=== PATIENT | male | born 1985 | race Caucasian/White ===

== ENCOUNTER 2019-12-04 14:57 | Emergency (ER) | payer BC, OTHER ==
--- NOTE | 2019-12-04 15:48 | ED ---
Fall HPI - General Chief Complaint: Fall Stated Complaint: Fall head injury Time Seen by Provider: 12/04/19 15:21 Source: patient Mode of arrival: wheelchair - History of Present Illness Initial Comments: 34-year-old male presenting today for chief complaint of fall at 2:30 AM this morning. Patient states that he was walking up steps he states is going up 2 steps that time he lost his balance falling backwards striking the occipital region of his head. Patient states he does believe he lost consciousness. He is unsure for how long. Patient states he was a backup to bed and fell asleep. He states he does not believe he passed out. Patient is unsure however patient denies any vomiting nausea headaches. Patient admits to pain to palpation in the region of the scalp where he struck his head. Patient admits to neck tenderness and some upper back tenderness. Patient states he has some tenderness over the right anterior chest. Patient doesn't appear deep inspiration or shortness of breath patient denies any chest pressure that is full range of motion of the right shoulder and denies pain in range of motion of the right shoulder. Patient denies any abdominal pain flank or low back pain. Patient denies hematuria. Patient remaining ROS (-). Upon arrival patient appears well there is no signs of acute distress. - Related Data Allergies Allergy/AdvReac Type Severity Reaction Status Date / Time No Known Allergies Allergy Verified 12/04/19 15:05 Review of Systems ROS Statement: Those systems with pertinent positive or pertinent negative responses have been documented in the HPI. ROS Other: All systems not noted in ROS Statement are negative. Past Medical History Past Medical History: No Reported History History of Any Multi-Drug Resistant Organisms: None Reported Past Surgical History: No Surgical Hx Reported Past Psychological History: Anxiety, Panic Disorder Smoking Status: Current every day smoker Past Alcohol Use History: Occasional Past Drug Use History: None Reported General Exam - General Exam Comments Initial Comments: General: The patient is awake and alert, in no distress Eye: +3 mm pupils are equal, round and reactive to light, extra-ocular movements are intact. No nystagmus. There is normal conjunctiva bilaterally. No signs of icterus. Ears, nose, mouth and throat: There are moist mucous membranes and no oral lesions. Nor raccoon or harrell sign. Neck: The neck is supple, there is no tenderness or JVD. There is some cervical motion C6//7 tenderness midline with tenderness of the upper thoracic region midline. No bruising noted. Cardiovascular: There is a regular rate and rhythm. No murmur, rub or gallop is appreciated. Respiratory: Lungs are clear to auscultation, respirations are non-labored, breath sounds are equal. No wheezes, stridor, rales, or rhonchi. Gastrointestinal: Soft, non-distended, non-tender abdomen without masses or organomegaly noted. There is no rebound or guarding present. Musculoskeletal: Normal ROM, no tenderness. Strength 5/5. Sensation intact. Radial pulses equal bilaterally 2+. Neurological: A&O x 3. CN II-XII intact grossly, There are no obvious motor or sensory deficits. Coordination appears grossly intact. Speech is normal. Skin: Skin is warm and dry and no rashes. Some abrasion over the right side of the thorax, some abrasion over the occiptal and right parietal region of scalp. No open laceration. Psychiatric: Cooperative, appropriate mood & affect, normal judgment. Limitations: no limitations Course Vital Signs 12/04/19 12/04/19 15:01 17:26 Temperature 98.2 F 98.6 F Pulse Rate 114 H 99 Respiratory 20 18 Rate Blood Pressure 168/82 124/98 O2 Sat by Pulse 97 99 Oximetry Medical Decision Making - Medical Decision Making Imaging studies negative for acute process. Patient has no focal neurological deficits he appears. Complains of neck pain. Cervical collar was cleared after imaging states revealed no acute fracture and I palpated patient's spine midline which had mild tenderness. Patient is able to fully range the cervical spine without difficulty or severe pain. No hematuria no abdominal flank pain. Patient is no shortness of breath chest x-ray and thoracic x-rays are WNL. After discussing imaging studies the patient he is agreeable to discharge at this time with primary care follow-up and return pressure discussed and patient was discharged appearing well - Lab Data Lab Results 12/04/19 Range/Units 16:33 Urine Color Yellow Urine Appearance Clear (Clear) Urine pH 6.5 (5.0-8.0) Ur Specific [place] 1.027 (1.001-1.035) Urine Protein Trace H (Negative) Urine Glucose (UA) Negative (Negative) Urine Ketones Negative (Negative) Urine Blood Negative (Negative) Urine Nitrite Negative (Negative) Urine Bilirubin Negative (Negative) Urine Urobilinogen 8.0 (<2.0) mg/dL Ur Leukocyte Esterase Negative (Negative) Disposition Clinical Impression: Fall, Scalp abrasion, Neck strain, LOC (loss of consciousness) Disposition: HOME SELF-CARE Condition: Good Instructions (If sedation given, give patient instructions): Cervical Strain (ED) Additional Instructions: Please use medication as discussed. Please follow-up with family doctor in the next 2 days. Please return to emergency room if the symptoms increase or worsen or for any other concerns. Is patient prescribed a controlled substance at d/c from ED?: No Referrals: None,Stated [REFERRING] - 1-2 days [facility] [NON-STAFF] - 1-2 days Time of Disposition: 17:21
--- NOTE | 2019-12-04 16:24 | CT ---
EXAMINATION TYPE: CT brain samara doyle con DATE OF EXAM: 12/04/2019 COMPARISON: NONE HISTORY: Fall with head injury and neck pain. CT DLP: 1768.8 mGycm. Automated Exposure Control for Dose Reduction was Utilized. TECHNIQUE: CT scan of the head and cervical spine are performed without contrast. FINDINGS: There is no acute intracranial hemorrhage, mass effect, or midline shift identified. The ventricles and sulci are within normal limits in size. Quezada-white matter differentiation is maintai lashell. Mild mucosal thickening right maxillary sinus. [id number] mucosal thickening bilateral eth moid sinuses. Near complete opacification left maxillary sinus. The calvarium is intact. Cervical spine is visualized in its entirety from C1 through upper thoracic levels and demonstrates reversal of normal cervical curvature center C4-C5 level without evidence of acute fracture or disloc ation. Prevertebral soft tissue appears within normal limits. The C1-C2 articulation is within norm al limits on the coronal images. Vertebral body heights are maintained. Mild disc space narrowing C4 -C5 level most prominent anteriorly. Posterior spur disc complex effaces the anterior thecal sac at C 4-C5 level. Axial image confirms left-sided paracentral spurring contributing to moderate left-sided neural foraminal narrowing lung apices are clear. IMPRESSION: 1. There is no acute fracture or dislocation evident in the cervical spine. 2. No acute intracranial hemorrhage or midline shift is seen. Incidental acute on chronic paranasal s inus disease.
[2019-12-04 16:45] LABS: Appearance,Urine Clear (Clear); Bilirubin,Urine Negative (Negative); Blood,Urine Negative (Negative); Color,Urine Yellow; Glucose,Urine (UA) Negative (Negative); Ketones,Urine Negative (Negative); Leukocyte Esterase,Urine Negative (Negative); Nitrite,Urine Negative (Negative); PH, Urine 6.5 (5.0-8.0); Protein,Urine Trace (Negative); Specific Gravity,Urine 1.027 (1.001-1.035)
--- NOTE | 2019-12-04 17:12 | XR ---
EXAMINATION TYPE: XR chest 2V DATE OF EXAM: 12/04/2019 COMPARISON: NONE HISTORY: Chest pain after football injury. TECHNIQUE: Frontal and lateral views of the chest are obtained. FINDINGS: There is no focal air space opacity, pleural effusion, or pneumothorax seen. The cardiac silhouette size is within normal limits. The osseous structures are intact. IMPRESSION: No acute process.
--- NOTE | 2019-12-04 17:13 | XR ---
EXAMINATION TYPE: XR thoracic spine complete DATE OF EXAM: 12/04/2019 CLINICAL HISTORY: Fall injury with mid back pain. TECHNIQUE: Frontal, lateral, and swimmer's view of thoracic spine are obtained. COMPARISON: None. FINDINGS: Thoracic spine show satisfactory alignment without evidence of acute fracture or dislocatio n. Vertebral body heights and disc space heights are preserved. Visualized ribs are unremarkable. IMPRESSION: No acute fracture or dislocation is seen in the thoracic spine.
[2019-12-04 17:27] VITALS: BP 124/98; PULSE 99; RESP 18; TEMP 98.6
== END 2019-12-04 17:27 | disposition home or self-care (01) ==
LOC: EC 14:57 → SUPCPDRO 14:57 → EC 17:27
DX: S06.9X9A Unspecified intracranial injury with loss of consciousness of unspecified duration, initial encounter (principal); S00.01XA Abrasion of scalp, initial encounter; S16.1XXA Strain of muscle, fascia and tendon at neck level, initial encounter; F17.200 Nicotine dependence, unspecified, uncomplicated; W18.09XA Striking against other object with subsequent fall, initial encounter; Y93.01 Activity, walking, marching and hiking
CPT/HCPCS: 70450; 71046; 72072; 72125; 81003; 99284

== ENCOUNTER 2023-07-11 16:29 | Emergency (ER) | payer OTHER ==
--- NOTE | 2023-07-11 16:46 | ED ---
General Adult HPI - General Source: patient, RN notes reviewed Mode of arrival: ambulatory Limitations: no limitations <Lashaun Garvey - Last Filed: 07/11/23 16:54> <Liz Reed - Last Filed: 07/11/23 22:33> - General Chief complaint: Arrhythmia/Palpitations Stated complaint: numbness on left side racing heart beat Time Seen by Provider: 07/11/23 16:45 - History of Present Illness Initial comments: 38-year-old male presents to the emergency department chief complaint of left arm pain with radiation to the chest 1.5 days. He states that he has associated palpitations and shortness of breath with this. He reports shortness of breath is worse with exertion. (Lashaun Garvey) Patient reported multiple day of pain in the left shoulder radiating up the neck and down the arm. Patient reports he has a long history of shoulder pain resulting from an injury when he was a teenager. Patient reports the pain is been bothering him for a few days he's been unable to sleep. Pain does seem to radiate down into his chest but he does not have any pain begins in his chest, pain is not associated with diaphoresis or lightheadedness. Patient does report some exertional dyspnea which is somewhat chronic but seems to be worsening. Patient does have a history of hypertension he is on lisinopril he's been compliant with this medication. Patient has no personal cardiac history. (Liz Reed) - Related Data Allergies Allergy/AdvReac Type Severity Reaction Status Date / Time No Known Allergies Allergy Verified 12/04/19 15:05 Review of Systems ROS Other: All systems not noted in ROS Statement are negative. <Lashaun Garvey - Last Filed: 07/11/23 16:54> ROS Other: All systems not noted in ROS Statement are negative. <Liz Reed - Last Filed: 07/11/23 22:33> ROS Statement: Those systems with pertinent positive or pertinent negative responses have been documented in the HPI. Past Medical History Past Medical History: Diabetes Mellitus, Hypertension History of Any Multi-Drug Resistant Organisms: None Reported Past Surgical History: No Surgical Hx Reported Past Psychological History: Anxiety, Panic Disorder Smoking Status: Vaper Past Alcohol Use History: Occasional Past Drug Use History: None Reported <Lashaun Garvey - Last Filed: 07/11/23 16:54> General Exam Limitations: no limitations <Lashaun Garvey - Last Filed: 07/11/23 16:54> General appearance: alert, in no apparent distress, obese (BMI 48) Head exam: Present: atraumatic, normocephalic Eye exam: Present: normal appearance Neck exam: Present: normal inspection. Absent: tenderness Respiratory exam: Present: normal lung sounds bilaterally. Absent: respiratory distress Cardiovascular Exam: Present: regular rate, normal rhythm GI/Abdominal exam: Absent: distended Extremities exam: Present: tenderness, normal capillary refill, other (Pain with range of motion of left shoulder, hypertonicity noted in the trapezius and levator scapula muscles) Back exam: Present: full ROM, tenderness, paraspinal tenderness Neurological exam: Present: alert, oriented X3 Psychiatric exam: Present: normal affect, normal mood Skin exam: Present: warm, dry, intact <Liz Reed P - Last Filed: 07/11/23 22:33> - General Exam Comments Initial Comments: Visual Physical Exam Vital signs reviewed General: Well-appearing, nontoxic, no acute distress. Head: Normocephalic, atraumatic Eyes: PERRLA, EOMI ENT: Airway patent Chest: Nonlabored breathing Skin: No visual rash, normal skin tone Neuro: Alert and oriented 3 Musculoskeletal: No gross abnormalities (Lashaun Garvey) Course Vital Signs 07/11/23 16:41 Temperature 99.2 F Pulse Rate 89 Respiratory 18 Rate Blood Pressure 185/109 O2 Sat by Pulse 95 Oximetry EKG Findings - EKG Comments: EKG Findings:: EKG is interpreted by me, initial EKG obtained at 1659, rate is 95 rhythm is sinus, there is significant artifact noted no obvious ST elevations or depressions no evidence of acute ischemia or infarction. Due to poor quality of first EKG repeat EKG was obtained at 2159, rate is 85 rhythm is sinus is no significant ST elevations or depressions no evidence of acute ischemia or infarction <Liz Reed P - Last Filed: 07/11/23 22:33> Medical Decision Making <Lashaun Garvey - Last Filed: 07/11/23 16:54> - Lab Data Result diagrams: 07/11/23 17:10 07/11/23 17:10 <Liz Reed P - Last Filed: 07/11/23 22:33> - Medical Decision Making I preformed the quick note portion of this chart. Electronically signed by Lashaun Garvey PA-C (Lashaun Garvey) - Lab Data Lab Results 07/11/23 07/11/23 07/11/23 Range/Units 17:10 17:10 17:10 WBC 9.6 (3.8-10.6) k/uL RBC 4.82 (4.30-5.90) m/uL Hgb 14.7 (13.0-17.5) gm/dL Hct 42.4 (39.0-53.0) % MCV 88.0 (80.0-100.0) fL MCH 30.6 (25.0-35.0) pg MCHC 34.8 (31.0-37.0) g/dL RDW 13.0 (11.5-15.5) % Plt Count 242 (150-450) k/uL MPV 8.3 Neutrophils % 52 % Lymphocytes % 34 % Monocytes % 6 % Eosinophils % 6 % Basophils % 1 % Neutrophils # 5.0 (1.3-7.7) k/uL Lymphocytes # 3.2 (1.0-4.8) k/uL Monocytes # 0.6 (0-1.0) k/uL Eosinophils # 0.5 (0-0.7) k/uL Basophils # 0.1 (0-0.2) k/uL PT 10.2 (10.0-12.5) sec INR 0.9 (<1.2) APTT 24.6 (22.0-30.0) sec Sodium 139 (137-145) mmol/L Potassium 4.1 (3.5-5.1) mmol/L Chloride 105 (98-107) mmol/L Carbon Dioxide 22 (22-30) mmol/L Anion Gap 12 mmol/L BUN 14 (9-20) mg/dL Creatinine 0.68 (0.66-1.25) mg/dL Est GFR (CKD-EPI)AfAm >90 (>60 ml/min/1.73 sqM) Est GFR (CKD-EPI)NonAf >90 (>60 ml/min/1.73 sqM) Glucose 141 H (74-99) mg/dL Calcium 9.9 (8.4-10.2) mg/dL Magnesium 1.7 (1.6-2.3) mg/dL Total Bilirubin 0.7 (0.2-1.3) mg/dL AST 35 (17-59) U/L ALT 53 H (4-49) U/L Alkaline Phosphatase 50 (38-126) U/L Troponin I (0.000-0.034) ng/mL Total Protein 7.3 (6.3-8.2) g/dL Albumin 4.6 (3.5-5.0) g/dL 07/11/23 Range/Units 17:10 WBC (3.8-10.6) k/uL RBC (4.30-5.90) m/uL Hgb (13.0-17.5) gm/dL Hct (39.0-53.0) % MCV (80.0-100.0) fL MCH (25.0-35.0) pg MCHC (31.0-37.0) g/dL RDW (11.5-15.5) % Plt Count (150-450) k/uL MPV Neutrophils % % Lymphocytes % % Monocytes % % Eosinophils % % Basophils % % Neutrophils # (1.3-7.7) k/uL Lymphocytes # (1.0-4.8) k/uL Monocytes # (0-1.0) k/uL Eosinophils # (0-0.7) k/uL Basophils # (0-0.2) k/uL PT (10.0-12.5) sec INR (<1.2) APTT (22.0-30.0) sec Sodium (137-145) mmol/L Potassium (3.5-5.1) mmol/L Chloride (98-107) mmol/L Carbon Dioxide (22-30) mmol/L Anion Gap mmol/L BUN (9-20) mg/dL Creatinine (0.66-1.25) mg/dL Est GFR (CKD-EPI)AfAm (>60 ml/min/1.73 sqM) Est GFR (CKD-EPI)NonAf (>60 ml/min/1.73 sqM) Glucose (74-99) mg/dL Calcium (8.4-10.2) mg/dL Magnesium (1.6-2.3) mg/dL Total Bilirubin (0.2-1.3) mg/dL AST (17-59) U/L ALT (4-49) U/L Alkaline Phosphatase (38-126) U/L Troponin I 0.020 (0.000-0.034) ng/mL Total Protein (6.3-8.2) g/dL Albumin (3.5-5.0) g/dL Disposition <Lashaun Garvey - Last Filed: 07/11/23 16:54> Is patient prescribed a controlled substance at d/c from ED?: No <Liz Reed - Last Filed: 07/11/23 22:33> Clinical Impression: Left shoulder pain, Hypertension, Exertional dyspnea, Morbid obesity Disposition: HOME SELF-CARE Condition: Stable Additional Instructions: Follow up with her primary care provider Dr. Barnard to discuss management of hypertension Follow up with orthopedic surgeon for reevaluation of your shoulder pain Prescriptions: Lidocaine 5% Patch [Lidoderm] 1 patch TOPICAL DAILY 30 Days #30 patch methocarbamoL [Robaxin-750] 750 mg PO TID #60 tab Referrals: None,Stated [Primary Care Provider] - 1-2 days
--- NOTE | 2023-07-11 17:27 | XR ---
EXAMINATION TYPE: XR chest 2V DATE OF EXAM: 07/11/2023 5:19 PM CLINICAL INDICATION:Male, 38 years old with history of pain; H COMPARISON: Chest radiographs from 12/04/2019 TECHNIQUE: XR chest 2V Frontal and lateral views of the chest. FINDINGS: Lungs/Pleura: There is no evidence of pleural effusion, focal consolidation, or pneumothorax. Pulmonary vascularity: Unremarkable. Heart/mediastinum: Cardiomediastinal silhouette is unremarkable. Musculoskeletal: No acute osseous pathology. Other findings: None IMPRESSION: No acute cardiopulmonary disease/process.
[2023-07-11 17:44] LABS: Basophils # (A) 0.1 k/uL (0-0.2); Basophils % (A) 1 %; Eosinophils # (A) 0.5 k/uL (0-0.7); Eosinophils % (A) 6 %; HCT 42.4 % (39.0-53.0); HGB 14.7 gm/dL (13.0-17.5); Lymphocytes # (A) 3.2 k/uL (1.0-4.8); Lymphocytes % (A) 34 %; MCH 30.6 pg (25.0-35.0); MCHC 34.8 g/dL (31.0-37.0); Mean Platelet Volume 8.3; Monocytes # (A) 0.6 k/uL (0-1.0); Monocytes % (A) 6 %; Neutrophils % (A) 52 %; Platelet Count 242 k/uL (150-450); RBC 4.82 m/uL (4.30-5.90); WBC 9.6 k/uL (3.8-10.6)
[2023-07-11 18:00] LABS: ALT 53 U/L (4-49); AST 35 U/L (17-59); African American GFR (CKD) >90 (>60 ml/min/1.73 sqM); Albumin 4.6 g/dL (3.5-5.0); Alkaline Phosphatase 50 U/L (38-126); Anion Gap 12 mmol/L; Blood Urea Nitrogen 14 mg/dL (9-20); Calcium 9.9 mg/dL (8.4-10.2); Carbon Dioxide 22 mmol/L (22-30); Chloride 105 mmol/L (98-107); Glucose 141 mg/dL (74-99); Magnesium 1.7 mg/dL (1.6-2.3); Non-African American GFR(CKD) >90 (>60 ml/min/1.73 sqM); Potassium 4.1 mmol/L (3.5-5.1); Sodium 139 mmol/L (137-145); Total Bilirubin 0.7 mg/dL (0.2-1.3); Total Protein 7.3 g/dL (6.3-8.2)
[2023-07-11 18:03] LABS: INR 0.9 (<1.2); Partial Thromboplastin Time 24.6 sec (22.0-30.0); Prothrombin Time 10.2 sec (10.0-12.5)
[2023-07-11] MEDS ORDERED: LIDOCAINE 5% PATCH TOPICAL STA (22:19)
[2023-07-11] MEDS ORDERED: diazePAM 2 MG TAB PO STA (22:19)
[2023-07-11 23:21] VITALS: PULSE 87
[2023-07-11 23:22] VITALS: BP 180/100; RESP 17; TEMP 98.9
== END 2023-07-11 22:50 | disposition home or self-care (01) ==
LOC: EC 16:29
DX: M25.512 Pain in left shoulder (principal); E66.01 Morbid (severe) obesity due to excess calories; I10 Essential (primary) hypertension; R06.00 Dyspnea, unspecified; E11.9 Type 2 diabetes mellitus without complications; Z68.42 Body mass index [BMI] 45.0-49.9, adult; F17.290 Nicotine dependence, other tobacco product, uncomplicated; Z86.59 Personal history of other mental and behavioral disorders
CPT/HCPCS: 36415; 71046; 80053; 83735; 84484; 85025; 85610; 85730; 93005; 99285

== ENCOUNTER → 2023-08-04 | Outpatient (CLI) | payer OTHER ==
--- NOTE | 2023-08-04 14:19 | MR ---
EXAMINATION TYPE: MR cervical spine wo con DATE OF EXAM: 08/04/2023 8:09 AM CLINICAL INDICATION:Male, 38 years old with history of M54.2 cervicalgia; PHH, Neck pain, radiates in to left shoulder/arm. COMPARISON: 12/04/2019.. TECHNIQUE: Multi planar, multi sequence imaging was performed utilizing: T1-weighted, T2-weighted, an d turbo inversion recovery imaging of the cervical spine. IV Contrast: (none if empty) FINDINGS: Alignment: The cervical vertebral bodies have preserved heights. Alignment is within normal limits gi galina patient positioning. Bones: Bone signal is within normal limits. No abnormal bone marrow edema on inversion recovery seque nces. Cord: The spinal cord is unremarkable with regards to their signal intensity and morphology. Discs: Multilevel disc desiccation is present. C2-C3: No significant disc pathology. The spinal canal is patent. Bilateral facet and uncovertebral joint arthropathy are present with mild right neural foraminal stenosis. The left neural foramen is p atent. C3-C4: No significant disc pathology. The spinal canal is patent. Bilateral facet and uncovertebral joint arthropathy are present with mild to moderate right neural foraminal stenosis. The left neural foramen is patent. C4-C5: Foraminal disc osteophyte formation with severe left neural foraminal stenosis and moderate to severe spinal canal narrowing cord signal is maintained. Facet joint uncovertebral arthropathy with at least moderate right neural foraminal stenosis. C5-C6: Foraminal disc osteophyte formation with severe left neural foraminal stenosis and moderate to severe spinal canal narrowing cord signal is maintained. Facet joint uncovertebral arthropathy with at least moderate right neural foraminal stenosis. C6-C7: Foraminal disc osteophyte formation with severe left neural foraminal stenosis and moderate to severe spinal canal narrowing cord signal is maintained. Facet joint uncovertebral arthropathy with at least moderate right neural foraminal stenosis. C7-T1: No significant disc pathology. The spinal canal is patent. No neural foraminal stenosis. Other: None. IMPRESSION: 1. C4-C5, C5-C6 and C6-C7e Left foraminal osteophyte with severe left and moderate to severe spinal c anal stenosis. 2. Additional multilevel degeneration changes at other levels the spine.
== END | disposition home or self-care (01) ==
LOC: RADMRIMAIN 07:37
PROVIDERS: ATTEND Internal Medicine
DX: M47.812 Spondylosis without myelopathy or radiculopathy, cervical region (principal); M48.02 Spinal stenosis, cervical region; M25.78 Osteophyte, vertebrae
CPT/HCPCS: 72141